=== PATIENT | male | born 1985 | race Caucasian/White ===

== ENCOUNTER 2024-06-16 18:16 | Emergency (ER) | payer OTHER | END 2024-06-16 20:14 | disposition home or self-care (01) | LOC: CSHERS 18:16 | DX: T71.9XXA Asphyxiation due to unspecified cause, initial encounter (principal); F17.290 Nicotine dependence, other tobacco product, uncomplicated | CPT/HCPCS: 99283 ==

== ENCOUNTER 2024-08-06 12:51 | Outpatient (CLI) | payer OTHER | END 2024-08-06 12:52 | disposition home or self-care (01) | LOC: CSHMRI 12:51 | PROVIDERS: ATTEND Psychiatry & Neurology Neurology | DX: M48.02 Spinal stenosis, cervical region (principal); R94.31 Abnormal electrocardiogram [ECG] [EKG]; R94.39 Abnormal result of other cardiovascular function study; M47.812 Spondylosis without myelopathy or radiculopathy, cervical region; M25.78 Osteophyte, vertebrae; I34.0 Nonrheumatic mitral (valve) insufficiency; I51.9 Heart disease, unspecified | CPT/HCPCS: 72156; 93306 ==

== ENCOUNTER 2024-08-17 12:52 | Outpatient (CLI) | payer OTHER | END 2024-08-17 12:53 | disposition home or self-care (01) | LOC: CSHCT 12:52 | PROVIDERS: ATTEND Psychiatry & Neurology Neurology | DX: M48.02 Spinal stenosis, cervical region (principal); M47.812 Spondylosis without myelopathy or radiculopathy, cervical region | CPT/HCPCS: 72125 ==